=== PATIENT | female | born 1980 | race Caucasian/White ===

== ENCOUNTER 2016-08-12 08:11 | Emergency (ER) | payer BC, OTHER ==
[~2016-08-12 08:11] MED LIST: OXYC-360 PO; PRENTAB72 PO
--- NOTE | 2016-08-12 08:27 | PD ---
HPI Chief Complaint right lower quadrant pain Date Seen: Aug 12, 2016 Time Seen: 08:40 Travel History International Travel<30 Days: No Contact w/Intl Traveler<30Days: No History of Present Illness HPI 35 year old at 22/1 weeks gestation presents with right lower quadrant pain that began yesterday. The pain is sharp, came on suddenly, is associated with certain positions and movements, is intermittent, and she rates it as an 8/ 10. She had two soft stools this morning but no darin diarrhea. She has mild nausea, no vomiting. She has not felt chills. She is afebrile here. As she is lying in bed, she notes that the pain is mostly gone. She does note foul odor to her urine, but no dysuria or increased frequency of urination. She does not feel dry mouth or lightheaded when she stands. Besides the pain she otherwise feels fine. She follows with Dr. Jones and notes no complications in this to date. History Past Medical History Narrative Medical Allergic rhinitis Obstetric History Obstetric History at 22/1 weeks gestation 1st) 38 weeks, delivered via induced vaginal delivery for induced hypertension 2nd) Current, no complications to date, follows with Dr. Jones Past Surgical History Narrative Surgical None Family History Narrative Family History Father: cardiac problems Maternal grandmother: breast cancer Social History Narrative Social History No smoking, drinking, drug use Allergies-Medications (Allergen,Severity, Reaction): Coded Allergies: No Known Allergies (Unverified , 08/02/12) Home Meds Reported Medications Oxycodone/Acetaminophen (Percocet)5 Mg/325 Mg Tab1-2 Tab PO Q6HPRN #30 FOR PAIN 08/05/12 Vit W/ Ferrous Fumara () Tab1 Po 08/02/12 Review of Systems Except as stated in HPI: all other systems reviewed are Neg Physical Exam Narrative GENERAL: Afebrile, vitals normal SKIN: Warm and dry. HEAD: Normocephalic and atraumatic. EYES: No scleral icterus. No injection or drainage. ENT: No nasal drainage noted. Mucous membranes pink. Airway patent. NECK: Supple, trachea midline. No JVD. CARDIOVASCULAR: Regular rate and rhythm without murmurs, gallops, or rubs. RESPIRATORY: Breath sounds equal bilaterally. No accessory muscle use. ABDOMEN/GI: Soft, nontender, no pain on palpation of the RLQ, normal bowel sounds, no distension, no guarding Gravid to 21 weeks size GENITOURINARY: External Genitalia: intact and normal in appearance Dilatation: 0 Effacement: 0 Uterine Contractions: none FHT's: Category: [-] Baseline: 140's Reactive: [-] Variability: [-] Decels: [-] EXTREMITIES: No cyanosis or edema. BACK: Nontender without obvious deformity. No CVA tenderness. NEUROLOGICAL: Awake and alert. Data Data Vital Signs Reviewed: Yes MDM Medical Record Reviewed: Yes Interpretation(s) 35 year old at 22/1 weeks gestation presents with right lower quadrant pain that began yesterday. Differential includes, most likely, round ligament pain, followed by urinary tract infection (foul odor to urine), followed by the much less likely appendicitis. Factors counting against appendicitis include no fever, generally feels good, pain is sudden and intermittent, and depends on positioning, and benign abdominal exam with no guarding. - Oral hydration - Urinalysis - Cervical check - Tylenol for pain - Reassurance Discussed with Dr. Levy Narrative Course / MDM 35 year old at 22/1 weeks gestation presents with right lower quadrant pain. UA is negative. Cervix closed. Pain improved since arrival. Most likely round ligament pain. - Reassurance - Tylenol PRN for pain - Follow up with OB provider - Instructions on concerning signs and symptoms that warrant a return to OB ED Discussed with Dr. Levy Diagnosis Diagnosis: Primary Impression: Round ligament pain Disposition: 01 DISCHARGE HOME Condition: Good Tay Castillo MD R2 Aug 12, 2016 08:27
[2016-08-12] MEDS ORDERED: ACETAMINOPHEN 325 MG TAB PO ONE (08:45)
[2016-08-12 09:12] LABS: BACTERIA, URINE OCC /hpf; BLOOD, URINE NEG (NEG); COMMENT (UR) CULT NOT INDICATED; CULTURE IF INDICATED CULT NOT INDICATED; GLUCOSE,URINE NEG (NEG); KETONE, URINE NEG (NEG); MUCUS URINE FEW /lpf (OCC); NITRITE,URINE NEG (NEG); PH, URINE 7.5 (5.0-8.5); URINE COLOR YELLOW (YELLW/STRAW)
== END 2016-08-12 10:13 | disposition home or self-care (01) ==
LOC: HOBED 08:11
DX: O26.92 Pregnancy related conditions, unspecified, second trimester (principal); R10.2 Pelvic and perineal pain; Z3A.22 22 weeks gestation of pregnancy
CPT/HCPCS: 81001; 99284